=== PATIENT | female | born 1975 | race Caucasian/White ===

== ENCOUNTER 2018-09-23 07:21 | Emergency (ER) | payer BC ==
[2018-09-23] MEDS ORDERED: Sodium Chloride 0.9% 1000 ML 1,000 ML IV STA (07:40)
[2018-09-23] MEDS ORDERED: MORPHINE SULFATE 4 MG INJ IV ONE (07:40)
[2018-09-23] MEDS ORDERED: Phenergan 25 MG INJ IV ONE (07:40)
--- NOTE | 2018-09-23 07:46 | ERPHSYRPT ---
- History of Present Illness Time Seen by Provider: 09/23/18 07:41 Historian: patient Exam Limitations: no limitations Patient Subjective Stated Complaint: pt states approx 0500 she woke with right sided pain right under her rib cage, denies any vomiting or diarrhea, reports it feels better when she bends over. Triage Nursing Assessment: pt is aox3, pupils perrl, afebrile, resps easy and non labored, radial pulses strong and equal, abd is soft tender to the right and left upper quadrants, bowel sounds are present and normoactive x4. pt skin is pale warm dry. Physician History: This is a 42-year-old white female with history of migraines and osteoarthritis arrives with complaint of pain described as sharp and crampy located in the upper epigastric region symptoms since this morning at 5:00. Patient denies any nausea vomiting or diarrhea. Past medical history includes migraines, osteoarthritis. Past surgical history includes tubal ligation, gastric bypass. Social history patient denies tobacco alcohol or illicit drug use. Timing/Duration: today (5 AM) Activities at Onset: none Quality: cramping, sharpness Abdominal Pain Onset Location: epigastric Pain Radiation: no radiation Severity of Pain-Max: moderate Severity of Pain-Current: moderate Modifying Factors: Improves With: other (patient feels better sitting up) Associated Symptoms: weakness, No back, No chest pain, No diaphoresis, No diarrhea, No fever/chills, No fatigue, No headache, No heartburn, No loss of appetite, No nausea, No neck pain, No rash, No shortness of breath, No syncope, No vomiting Previous symptoms: same symptoms as today (Patient states similar pain in past, which resolved spontaneously) Allergies/Adverse Reactions: oseltamivir [From Tamiflu] Allergy (Verified 09/23/18 07:40) Home Medications: ARIPiprazole [Aripiprazole] 10 mg PO DAILY 09/23/18 [History] Duloxetine HCl [Cymbalta] 60 mg PO DAILY 09/23/18 [History] Mirtazapine 15 mg PO DAILY 09/23/18 [History] Topiramate [Trokendi Xr] 200 mg PO DAILY 09/23/18 [History] Hx Tetanus, Diphtheria Vaccination/Date Given: No Hx Influenza Vaccination/Date Given: No Hx Pneumococcal Vaccination/Date Given: No Immunizations Up to Date: Yes - Review of Systems Constitutional: No Fever, No Chills Eyes: No Symptoms Ears, Nose, & Throat: No Symptoms Respiratory: No Symptoms Cardiac: No Chest Pain, No Edema, No Syncope Abdominal/Gastrointestinal: Abdominal Pain (epigastric abdominalpain), No Nausea , No Vomiting, No Diarrhea, No Constipation, No Hematemesis, No Hematochezia, No Melena, No Dysphagia, No Appetite Changes Genitourinary Symptoms: No Dysuria Musculoskeletal: No Back Pain, No Neck Pain Skin: No Rash Neurological: No Dizziness, No Focal Weakness, No Sensory Changes Psychological: No Symptoms Endocrine: No Symptoms All Other Systems: Reviewed and Negative - Past Medical History Pertinent Past Medical History: Yes Neurological History: Migraines Musculoskeletal History: Osteoarthritis Psycho-Social History: Depression - Past Surgical History Past Surgical History: Yes Female Surgical History: Tubal Ligation Other Surgical History: gastric bypass 2014 - Social History Smoking Status: Never smoker Exposure to second hand smoke: No Drug Use: none Patient Lives Alone: No - Female History Hx Last Menstrual Period: 09/08/18 Hx Now: No - Nursing Vital Signs Nursing Vital Signs: Initial Vital Signs Temperature 98.8 F 09/23/18 07:25 Pulse Rate 81 09/23/18 07:25 Respiratory Rate 20 09/23/18 07:25 Blood Pressure 123/82 09/23/18 07:25 O2 Sat by Pulse Oximetry 100 09/23/18 07:25 Pain Scale Pain Intensity 4 - Physical Exam General Appearance: mild distress Eye Exam: PERRL/EOMI, eyes nml inspection Ears, Nose, Throat Exam: normal ENT inspection, pharynx normal, moist mucous membranes Neck Exam: normal inspection, non-tender, supple, full range of motion Respiratory Exam: normal breath sounds, chest tenderness, lungs clear, airway intact, No respiratory distress, No diminished breath sounds, No accessory muscle use, No prolonged expirations, No crackles/rales, No rhonchi, No wheezing , No stridor, No pleural rub Cardiovascular Exam: regular rate/rhythm, normal heart sounds, normal peripheral pulses, capillary refill <2 sec, No murmur, No friction rub, No gallop, No tachycardia, No bradycardia, No irregular, No capillary refill 2-3 sec, No capillary refill >3 sec, No edema, No pulse deficit Gastrointestinal/Abdomen Exam: soft, normal bowel sounds, tenderness ( epigastric tenderness), No mass, No guarding, No ecchymosis, No pulsatile mass, No rebound, No hernia, No hepatomegaly, No organomegaly, No splenomegaly, No bruit Back Exam: normal inspection, normal range of motion, No CVA tenderness, No vertebral tenderness Extremity Exam: normal inspection, normal range of motion, pelvis stable Neurologic Exam: alert, oriented x 3, cooperative, 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 New fecal stasis without obstruction. 2. Distended gallbladder without gall stones. 3. Interval gastric bypass surgery without complications. 4. Remaining CT abdomen/pelvis with contrast is negative.) Ordered Tests: Active Orders 24 hr Category Date Time Status EKG-ER Only STAT Care 09/23/18 08:35 Active IV Insertion STAT Care 09/23/18 07:40 Active ABDOMEN AND PELVIS W CONTRAST [CT] Stat Exams 09/23/18 08:22 Completed AMYLASE Stat Lab 09/23/18 07:50 Completed CBC W DIFF Stat Lab 09/23/18 07:50 Completed CMP Stat Lab 09/23/18 07:50 Completed HCG QUALITATIVE,SERUM Stat Lab 09/23/18 07:50 Completed LIPASE Stat Lab 09/23/18 07:50 Completed TROPONIN Q3H Lab 09/23/18 08:45 Completed TROPONIN Q3H Lab 09/23/18 11:45 Ordered TROPONIN Q3H Lab 09/23/18 14:45 Ordered TROPONIN Q3H Lab 09/23/18 17:45 Ordered TROPONIN Q3H Lab 09/23/18 20:45 Ordered UA W/RFX UR CULTURE Stat Lab 09/23/18 08:09 Completed Medication Summary Discontinued Medications Generic Name Dose Route Start Last Admin Trade Name Freq PRN Reason Stop Dose Admin Sodium Chloride 1,000 mls @ 999 mls/hr 09/23/18 07:40 09/23/18 07:50 Sodium Chloride 0.9% 1000 Ml IV 09/23/18 08:40 999 mls/hr .Q1H1M STA Administration Sodium Chloride Confirm 09/23/18 07:48 Sodium Chloride 0.9% 1000 Ml Administered 09/23/18 07:49 Dose 1,000 mls @ ud .ROUTE .STK-MED ONE Morphine Sulfate 4 mg 09/23/18 07:40 09/23/18 07:50 Morphine Sulfate 4 Mg Inj IV 09/23/18 07:41 4 mg STAT ONE Administration Morphine Sulfate Confirm 09/23/18 07:48 Morphine Sulfate 4 Mg Inj Administered 09/23/18 07:49 Dose 4 mg .ROUTE .STK-MED ONE Promethazine HCl 12.5 mg 09/23/18 07:40 09/23/18 07:53 Phenergan 25 Mg Inj IV 09/23/18 07:41 12.5 mg STAT ONE Administration Promethazine HCl Confirm 09/23/18 07:48 Phenergan 25 Mg Inj Administered 09/23/18 07:49 Dose 25 mg .ROUTE .STK-MED ONE Promethazine HCl Confirm 09/23/18 07:52 Phenergan 25 Mg Inj Administered 09/23/18 07:53 Dose 25 mg .ROUTE .STK-MED ONE Lab/Rad Data: Laboratory Result Diagrams 09/23/18 07:50 09/23/18 07:50 Laboratory Results 09/23/18 09/23/18 09/23/18 Range/Units 08:45 08:09 07:50 WBC (4.0-10.5) K/mm3 RBC (4.1-5.4) M/mm3 Hgb (12.0-16.0) gm/dl Hct (35-47) % MCV (78-100) fl MCH (26-32) pg MCHC (32-36) g/dl RDW (11.5-14.0) % Plt Count (150-450) K/mm3 MPV (6-9.5) fl Gran % (36.0-66.0) % Eos # (Auto) (0-0.5) Absolute Lymphs (auto) (1.0-4.6) Absolute Monos (auto) (0.0-1.3) Lymphocytes % (24.0-44.0) % Monocytes % (0.0-12.0) % Eosinophils % (0.00-5.0) % Basophils % (0.0-0.4) % Absolute Granulocytes (1.4-6.9) Basophils # (0-0.4) Sodium (137-145) mmol/L Potassium (3.5-5.1) mmol/L Chloride (98-107) mmol/L Carbon Dioxide (22-30) mmol/L Anion Gap (5-15) MEQ/L BUN (7-17) mg/dL Creatinine (0.52-1.04) mg/dL Estimated GFR ML/MIN Glucose (74-106) mg/dL Calcium (8.4-10.2) mg/dL Total Bilirubin (0.2-1.3) mg/dL AST (14-36) U/L ALT (0-35) U/L Alkaline Phosphatase (38-126) U/L Troponin I < 0.012 (0.000-0.034) ng/mL Serum Total Protein (6.3-8.2) g/dL Albumin (3.5-5.0) g/dL Amylase (30-110) U/L Lipase (23-300) U/L Serum , Qual NEGATIVE (Negative) Urine Color YELLOW (YELLOW) Urine Appearance CLOUDY (CLEAR) Urine pH 6.0 (5-6) Ur Specific [place] 1.019 (1.005-1.025) Urine Protein NEGATIVE (Negative) Urine Ketones NEGATIVE (NEGATIVE) Urine Blood NEGATIVE (0-5) Rashaad/ul Urine Nitrite NEGATIVE (NEGATIVE) Urine Bilirubin NEGATIVE (NEGATIVE) Urine Urobilinogen 4 (0-1) mg/dL Ur Leukocyte Esterase NEGATIVE (NEGATIVE) Urine WBC (Auto) NONE SEEN (0-5) /HPF Urine RBC (Auto) 0-2 (0-2) /HPF U Epithel Cells (Auto) RARE (FEW) /HPF Urine Bacteria (Auto) FEW (NEGATIVE) /HPF Calcium Oxalate Crystal >100 (NEGATIVE) /HPF Urine Culture Reflexed NO (NO) Urine Glucose NEGATIVE (NEGATIVE) mg/dL 09/23/18 09/23/18 Range/Units 07:50 07:50 WBC 3.4 L (4.0-10.5) K/mm3 RBC 4.07 L (4.1-5.4) M/mm3 Hgb 12.2 (12.0-16.0) gm/dl Hct 35.8 (35-47) % MCV 88.0 (78-100) fl MCH 29.9 (26-32) pg MCHC 34.1 (32-36) g/dl RDW 15.2 H (11.5-14.0) % Plt Count 270 (150-450) K/mm3 MPV 10.4 H (6-9.5) fl Gran % 59.2 (36.0-66.0) % Eos # (Auto) 0.09 (0-0.5) Absolute Lymphs (auto) 0.92 L (1.0-4.6) Absolute Monos (auto) 0.35 (0.0-1.3) Lymphocytes % 27.0 (24.0-44.0) % Monocytes % 10.3 (0.0-12.0) % Eosinophils % 2.6 (0.00-5.0) % Basophils % 0.9 (0.0-0.4) % Absolute Granulocytes 2.02 (1.4-6.9) Basophils # 0.03 (0-0.4) Sodium 143 (137-145) mmol/L Potassium 3.6 (3.5-5.1) mmol/L Chloride 114 H (98-107) mmol/L Carbon Dioxide 18 L (22-30) mmol/L Anion Gap 15.6 H (5-15) MEQ/L BUN 11 (7-17) mg/dL Creatinine 0.65 (0.52-1.04) mg/dL Estimated GFR > 60.0 ML/MIN Glucose 92 (74-106) mg/dL Calcium 9.4 (8.4-10.2) mg/dL Total Bilirubin 0.60 (0.2-1.3) mg/dL AST 25 (14-36) U/L ALT 24 (0-35) U/L Alkaline Phosphatase 80 (38-126) U/L Troponin I (0.000-0.034) ng/mL Serum Total Protein 7.8 (6.3-8.2) g/dL Albumin 4.8 (3.5-5.0) g/dL Amylase 106 (30-110) U/L Lipase 249 (23-300) U/L Serum , Qual (Negative) Urine Color (YELLOW) Urine Appearance (CLEAR) Urine pH (5-6) Ur Specific [place] (1.005-1.025) Urine Protein (Negative) Urine Ketones (NEGATIVE) Urine Blood (0-5) Rashaad/ul Urine Nitrite (NEGATIVE) Urine Bilirubin (NEGATIVE) Urine Urobilinogen (0-1) mg/dL Ur Leukocyte Esterase (NEGATIVE) Urine WBC (Auto) (0-5) /HPF Urine RBC (Auto) (0-2) /HPF U Epithel Cells (Auto) (FEW) /HPF Urine Bacteria (Auto) (NEGATIVE) /HPF Calcium Oxalate Crystal (NEGATIVE) /HPF Urine Culture Reflexed (NO) Urine Glucose (NEGATIVE) mg/dL - Progress Progress: improved Progress Note: 09/23/18 08:23 Patient still with epigastric pain has received Phenergan and morphine as well as IV normal saline. Patient with history of gastric bypass. Will go ahead and obtain CT of the abdomen with contrast. 09/23/18 09:32 CT of the abdomen remarkable for fecal stasis without obstruction, also distended gallbladder without gallstones. There is interval gastric bypass surgery without complications. Remainder CT abdomen and pelvis without contrast is negative, Patient is feeling better, Patient does have EKG with a complete right bundle branch block there is no old EKG for comparisons, Troponin is within normal limits amylase lipase are within normal limits. CBC White blood cell 3.4 hemoglobin 12.2 hematocrit 35.8 platelets 270 urinalysis greater than 100 calcium oxalate crystals urobilinogen is for specific gravity 1.019 pH 6.0 hCG is negative chemistry mild elevation of chloride of 114 bicarbonate is 18 and gap 15.6 Troponin within normal limits. Will discharge patient patient to have plenty of fluids, her fluids only 24-48 hours if abdominal pain she is to avoid milk or fatty foods. Will write for a small amount of [place] for pain. Patient to follow-up with her family doctor. To return for acute distress or for severe symptoms. - Departure Time of Disposition: 09:35 Departure Disposition: Home Clinical Impression: Biliary colic Abdominal pain Qualifiers: Abdominal location: epigastric Qualified Code(s): R10.13 - Epigastric pain Condition: Fair Critical Care Time: No Referrals: MEGHANA ALDANA MD [Primary Care Provider] - Instructions: Acute Abdomen (Belly Pain) Additional Instructions: Return home. Plenty of fluids. Clear fluids only 24-48 hours if abdominal pain. Avoid milk or fatty foods. [place] 5/325 #10 one orally every 4-6 hours as needed for pain. Follow-up with your family doctor call and arrange follow-up appointment. Return for acute distress or for severe symptoms. Prescriptions: Hydrocodone/Acetaminophen [[place] 5-325 Tablet] 1 tab PO Q4-6HPRN PRN #10 tablet MDD 6 tablets PRN Reason: Pain
[2018-09-23] MEDS ORDERED: Sodium Chloride 0.9% 1000 ML 1,000 ML ONE (07:48)
[2018-09-23] MEDS ORDERED: Phenergan 25 MG INJ ONE ×2 (07:48→07:52)
[2018-09-23] MEDS ORDERED: MORPHINE SULFATE 4 MG INJ ONE (07:48)
[2018-09-23 08:04] LABS: BASOPHIL % 0.9 % (0.0-0.4); Basophil (Absolute #) 0.03 (0-0.4); Eosinophil % 2.6 % (0.00-5.0); Eosinophil (Absolute #) 0.09 (0-0.5); Granulocyte Absolute (ANC) 2.02 (1.4-6.9); Granulocytes % 59.2 % (36.0-66.0); Hematocrit 35.8 % (35-47); Hemoglobin 12.2 gm/dl (12.0-16.0); Lymphocyte (Absolute #) 0.92 (1.0-4.6); Mean Corpuscular Hgb Concent. 34.1 g/dl (32-36); Mean Platelet Volume 10.4 fl (6-9.5); Monocyte (Absolute #) 0.35 (0.0-1.3); Monocytes % 10.3 % (0.0-12.0); Platelet Count 270 K/mm3 (150-450); Red Blood Count 4.07 M/mm3 (4.1-5.4); Red Cell Distribution Width 15.2 % (11.5-14.0); White Blood Count 3.4 K/mm3 (4.0-10.5)
[2018-09-23 08:06] LABS: Mean Corpuscular Hemoglobin 29.9 pg (26-32)
[2018-09-23 08:16] LABS: ALBUMIN 4.8 g/dL (3.5-5.0); ALKALINE PHOSPHATASE 80 U/L (38-126); AMYLASE 106 U/L (30-110); ANION GAP 15.6 MEQ/L (5-15); BLOOD UREA NITROGEN 11 mg/dL (7-17); CHLORIDE 114 mmol/L (98-107); Calcium 9.4 mg/dL (8.4-10.2); Carbon Dioxide 18 mmol/L (22-30); Creatinine 1 0.65 mg/dL (0.52-1.04); Glucose 92 mg/dL (74-106); LIPASE 249 U/L (23-300); Potassium 3.6 mmol/L (3.5-5.1); SGOT/AST 25 U/L (14-36); SGPT/ALT 24 U/L (0-35); SODIUM 143 mmol/L (137-145); Total Protein 7.8 g/dL (6.3-8.2)
[2018-09-23 08:17] LABS: Appearance CLOUDY (CLEAR); Bilirubin NEGATIVE (NEGATIVE); Blood NEGATIVE Ery/ul (0-5); Glucose NEGATIVE (NEGATIVE); Ketones NEGATIVE (NEGATIVE); Leukocyte Esterase NEGATIVE (NEGATIVE); Nitrite NEGATIVE (NEGATIVE); Protein,Urine Dip NEGATIVE (Negative); Specific Gravity 1.019 (1.005-1.025); Urobilinogen 4 mg/dL (0-1)
--- NOTE | 2018-09-23 09:19 | XRAY ---
Indication: Upper abdominal pain. Multiple contiguous axial images obtained through the abdomen and pelvis using 80 cc Isovue 370 contrast only. Comparison: March 10, 2015. Lung bases remain essentially clear. Heart is not enlarged. There has been interval gastric bypass surgery. Noncontrasted stomach and bowel loops appear nonobstructed. There is now mild/moderate diffuse scattered colonic fecal debris throughout. Appendix not seen. No free fluid/air. Gallbladder is now moderately distended without gallstones. Remaining liver, pancreas, spleen, adrenal glands, kidneys, ureters, bladder, and uterus appear unremarkable. Again minimal aortic calcifications. No AAA or pathologic retroperitoneal lymphadenopathy. Osseous structures intact again with minimal degenerative changes throughout the spine. No ventral or inguinal hernias. Impression: 1. New fecal stasis without obstruction. 2. Distended gallbladder without gallstones. 3. Interval gastric bypass surgery without complications. 4. Remaining CT abdomen/pelvis with contrast exam is negative. CT DI 9.31
[2018-09-23 09:40] VITALS: BP 120/84; PULSE 68; O2SAT 98
== END 2018-09-23 09:52 | disposition home or self-care (01) ==
LOC: ED 07:21
DX: K80.50 Calculus of bile duct without cholangitis or cholecystitis without obstruction (principal); R10.13 Epigastric pain; Z79.899 Other long term (current) drug therapy; Z98.84 Bariatric surgery status
CPT/HCPCS: 36000; 36415; 74177; 80053; 81001; 81025; 82150; 83690; 84484; 85025; 93005; 96360; 96374; 96375; 99284; J2270; J2550

== ENCOUNTER 2022-09-05 15:13 | Emergency (ER) | payer BC, OTHER ==
[2022-09-05 15:27] VITALS: O2SAT 99
[2022-09-05] MEDS ORDERED: TYLENOL 325 MG PO STA (15:30)
[2022-09-05] MEDS ORDERED: MOTRIN 600 MG PO ONE (15:31)
[2022-09-05] MEDS ORDERED: MOTRIN 600 MG ONE (15:33)
[2022-09-05] MEDS ORDERED: TYLENOL 325 MG ONE (15:33)
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
[2022-09-05 16:15] VITALS: BP 123/87; PULSE 63
== END 2022-09-05 16:19 | disposition home or self-care (01) ==
LOC: ED 15:13
DX: S16.1XXA Strain of muscle, fascia and tendon at neck level, initial encounter (principal); S29.012A Strain of muscle and tendon of back wall of thorax, initial encounter; S39.012A Strain of muscle, fascia and tendon of lower back, initial encounter; V53.5XXA Driver of pick-up truck or van injured in collision with car, pick-up truck or van in traffic accident, initial encounter; Z79.891 Long term (current) use of opiate analgesic; Z79.899 Other long term (current) drug therapy; Z28.310 Unvaccinated for COVID-19
CPT/HCPCS: 72050; 72072; 72100; 99285; A9270-GY